=== PATIENT | male | born 1965 ===

== ENCOUNTER 2025-03-26 06:28 | Day surgery (SDC) | payer OTHER ==
[2025-03-20 12:08] VITALS: BP 132/88
[~2025-03-26] VITALS: Ht 175.3 cm; Wt 91.2 kg
[~2025-03-26 06:28] MED LIST: COZAAR100 MG PO; ESTAZOLAM2 MG PO; HYDROCHLOROTHIA25 MG PO; PROZAC40 MG PO
[2025-03-26] MEDS ORDERED: METRONIDAZOLE/SODIUM CHLORIDE 500 MG/100 ML PIGGYBACK IV ONE (07:24)
[2025-03-26] MEDS ORDERED: CEFTRIAXONE SODIUM 2,000 MG VIAL ONE (07:24)
== END 2025-03-26 09:05 | disposition designated cancer center or children's hospital (05) ==
LOC: CIR.AMB 06:28
PROVIDERS: ATTEND Surgery
DX: K64.2 Third degree hemorrhoids (principal); Z53.09 Procedure and treatment not carried out because of other contraindication; R03.0 Elevated blood-pressure reading, without diagnosis of hypertension; R53.1 Weakness; R61 Generalized hyperhidrosis

== ENCOUNTER 2025-03-26 09:05 | Emergency (ER) | payer OTHER ==
[~2025-03-26] VITALS: Ht 175.3 cm; Wt 91.2 kg
[2025-03-26 09:16] VITALS: BP 123/88; O2SAT 99
[2025-03-26 09:54] LABS: BASO % 0.4 % (0.1-1.2); EOS # 0.05 (0.04-0.54); EOS % 0.7 % (0.7-7.0); HEMATOCRIT 41.9 % (40.1-51.0); HEMOGLOBIN 14.2 g/dL (13.7-17.5); LYMPH # 2.03 (1.18-3.74); LYMPH % 30.2 % (19.3-53.1); MEAN CORPUSCULAR HEMOGLOBIN 28.5 pg (25.6-32.2); MONO # 0.46 (0.24-0.82); MONO % 6.8 % (4.7-12.5); NEUT # 4.14 (1.56-6.13); NEUT % 61.8 % (34.0-71.1); PLATELET COUNT 291 K/uL (163-369); RED BLOOD COUNT 4.98 M/uL (4.63-6.08); RED CELL DISTRIBUTION WIDTH 14.2 % (11.6-14.4)
[2025-03-26 10:13] LABS: CALCIUM 8.7 mg/dL (8.5-10.1); CREATININE SERUM 0.84 mg/dL (0.70-1.30); GFR 93.21; POTASSIUM 3.92 mEq/L (3.5-5.1)
== END 2025-03-26 12:07 | disposition home or self-care (01) ==
LOC: ER 09:05
PROVIDERS: Emergency Medicine
DX: R55 Syncope and collapse (principal); K64.8 Other hemorrhoids; F32.89 Other specified depressive episodes; I10 Essential (primary) hypertension

== ENCOUNTER 2025-04-09 07:06 | Day surgery (SDC) | payer OTHER ==
[2025-04-09] MEDS ORDERED: METRONIDAZOLE/SODIUM CHLORIDE 500 MG/100 ML PIGGYBACK IV ONE (11:00)
[2025-04-09] MEDS ORDERED: CEFTRIAXONE SODIUM 2,000 MG VIAL ONE (11:00)
[2025-04-09] MEDS ORDERED: POVIDONE-IODINE 118 ML BOTT TOP ONE (11:05)
[2025-04-09] MEDS ORDERED: DIBUCAINE 30 GM TUBE ONE (11:05)
[2025-04-09] MEDS ORDERED: HEMOSTATIC MATRIX 1 KIT KIT TOP ONE (11:05)
[2025-04-09] MEDS ORDERED: LIDOCAINE HCL 1%/EPINEPHRINE 20ML VIAL IJ ONE (11:05)
[2025-04-09] MEDS ORDERED: BUPIVACAINE HCL/MPF 0.5% 30ML VIAL ONE (11:05)
[2025-04-09] MEDS ORDERED: OXYCODONE HCL5 MG PO (12:14)
[2025-04-09] MEDS ORDERED: TAMSULOSIN HCL 0.4 MG CAP PO ONE ×2 (12:15→13:16)
[2025-04-09] MEDS ORDERED: hydrALAZINE HCL 20 MG VIAL ONE (15:04)
[2025-04-09] MEDS ORDERED: MORPHINE SULFATE 4 MG/ML VIAL IV ONE (16:20)
== END 2025-04-09 17:25 | disposition home or self-care (01) ==
LOC: CIR.AMB 07:06
PROVIDERS: ATTEND Surgery
DX: K64.2 Third degree hemorrhoids (principal); K64.4 Residual hemorrhoidal skin tags; K64.8 Other hemorrhoids